=== PATIENT | male | born 1980 | race Caucasian/White ===

== ENCOUNTER 2018-04-07 07:54 | Emergency (ER) | payer OTHER ==
[2018-04-07] MEDS ORDERED: Albuterol Sulfate 2.5 mg/0.5 ml Neb ONE (08:09)
[2018-04-07] MEDS ORDERED: Albuterol Sulfate 2.5 mg/3 ml Neb ONE (08:09)
--- NOTE | 2018-04-07 10:04 | RAD ---
PA AND LATERAL CHEST XRAY: DATE: 04/07/18. HISTORY: Cough, asthma exacerbation. COMPARISON: None available. FINDINGS: The cardiac silhouette and pulmonary vasculature are within normal limits. The lungs are clear. No pneumothorax or pleural effusion is seen. Osseous structures are intact. IMPRESSION: No acute cardiopulmonary process. POS: [facility]
== END 2018-04-07 09:20 | disposition home or self-care (01) ==
LOC: ERS 07:54
DX: J45.901 Unspecified asthma with (acute) exacerbation (principal); F17.210 Nicotine dependence, cigarettes, uncomplicated; Z71.6 Tobacco abuse counseling
CPT/HCPCS: 71046; 94640; 94644; 99406; J7611